=== PATIENT | female | born 1980 | race Caucasian/White ===

== ENCOUNTER 2023-03-04 06:00 | Emergency (ER) | payer OTHER ==
[~2023-03-04] VITALS: Ht 152.4 cm; Wt 72.6 kg
[2023-03-04 06:18] VITALS: BP_SYST 202; PULSE 88; RESP 24; TEMP 97.3; O2SAT 95
[2023-03-04] MEDS ORDERED: NACL 0.9% 1,000 ML IV ONE (06:45)
[2023-03-04] MEDS ORDERED: cloNIDine HCL 0.1 MG TABLET ONE (07:27)
[2023-03-04] MEDS ORDERED: cloNIDine HCL 0.1 MG TABLET PO ONE (07:30)
[2023-03-04] MEDS ORDERED: cloNIDine HCL 0.2 MG TABLET PO ONE (07:30)
[2023-03-04 07:32] LABS: BILIRUBIN,URINE NEGATIVE (NEGATIVE); BLOOD, URINE 2+ (NEGATIVE); CLARITY/URINE CLEAR (CLEAR); GLUCOSE,URINE NEGATIVE (NEGATIVE); KETONES,URINE NEGATIVE (NEGATIVE); LEUKOCYTE ESTERASE ,URINE NEGATIVE (NEGATIVE); NITRITE, URINE NEGATIVE (NEGATIVE); PROTEIN URINE 3+ (NEGATIVE); UROBILINOGEN,URINE 0.2 (0.2-1.0)
[2023-03-04 07:37] LABS: BASOPHILS # (AUTO) 0.1 K/uL (0.0-0.2); BASOPHILS % (AUTO) 1.4 % (0.0-2.0); EOSINOPHILS % (AUTO) 0.3 % (0.0-4.0); HEMATOCRIT 41.1 % (36-48); HEMOGLOBIN 13.6 g/dL (12.0-16.0); LYMPHOCYTES # (AUTO) 1.6 K/uL (1.0-5.5); LYMPHOCYTES % (AUTO) 39.1 % (20.5-51.5); MEAN CORPUSCULAR HEMOGLOBIN 32 pg (27-31); MEAN CORPUSCULAR HGB CONC 33 % (32-36); MEAN CORPUSCULAR VOLUME 95 fL (79.0-98.0); MONOCYTES # (AUTO) 0.4 K/uL (0.0-1.0); MONOCYTES % (AUTO) 10.2 % (1.7-9.3); PLATELET COUNT (AUTO) 385 K/uL (130-430); RED BLOOD CELL COUNT(AUTO) 4.34 MIL/uL (4.2-6.2); RED CELL DISTRIBUTION WIDTH 13.6 % (9.0-15.0); WHITE BLOOD COUNT (AUTO) 4.2 K/uL (4.8-10.8)
[2023-03-04 07:38] LABS: PROTHROMBIN TIME 10.5 SECS (9.5-12.5)
[2023-03-04 07:41] LABS: COLOR,URINE STRAW (YELLOW)
[2023-03-04 07:42] LABS: BARBITURATE, URINE NEGATIVE (NEG <=200); BENZODIAZEPINE, URINE POSITIVE (NEG <=150); CANNABINOID, URINE NEGATIVE (NEG <=50); COCAINE, URINE NEGATIVE (NEG <=150); METHAMPHETAMINES SCREEN,URINE NEGATIVE (NEG <=500); OPIATE, URINE NEGATIVE (NEG <=100); PHENCYCLIDINE SCREEN,URINE NEGATIVE (NEG <=25); UR TRICYCLIC ANTIDEPRESSANTS NEGATIVE (NEG <=300); URINE AMPHETAMINE NEGATIVE (NEG <=500); URINE METHADONE NEGATIVE (NEG <=200); URINE OXYCODONE SCREEN NEGATIVE (NEG <=100)
[2023-03-04 07:54] LABS: ANION GAP 10 (5-15); CARBON DIOXIDE 26 mmol/L (23-29); CHLORIDE 109 mmol/L (98-107); CREATININE 0.53 mg/dL (0.55-1.30); GFR AFRICAN AMERICAN 162 mL/min (>90); GLUCOSE 105 mg/dL (74-106); POTASSIUM 3.2 mmol/L (3.5-5.1); SODIUM SERUM 145 mmol/L (136-145); UREA NITROGEN, BLOOD 5 mg/dL (8-21)
[2023-03-04 07:56] LABS: GFR NON AFRICAN-AMERICAN 134 mL/min (>90)
[2023-03-04 08:07] LABS: BACTERIA,URINE RARE /HPF (None Seen); WBC,URINE 0-3 /HPF (0-3)
[2023-03-04 08:10] LABS: ACETAMINOPHEN 3 ug/mL (1-30); ALANINE AMINOTRANSFERASE 59 U/L (12-78); ALBUMIN 2.3 g/dL (3.4-4.8); ALCOHOL, BLOOD 284 mg/dL (<10); ASPARTATE AMINOTRANSFERASE 40 U/L (10-37); BILIRUBIN,DIRECT < 0.1 mg/dL (0.0-0.3); CREATINE KINASE, TOTAL 142 U/L (26-192); SALICYLATE 1 mg/dL (3-30); TOTAL BILIRUBIN 0.1 mg/dL (0.0-1.0); TOTAL PROTEIN, SERUM 5.5 g/dL (6.4-8.3)
[2023-03-04 08:14] LABS: ACETONE, SERUM NEGATIVE (NEGATIVE)
[2023-03-04 11:22] VITALS: BP_SYST 155; PULSE 81; RESP 15; TEMP 97.3; O2SAT 95
== END 2023-03-04 11:18 | disposition home or self-care (01) ==
LOC: SED 06:00
DX: F10.129 Alcohol abuse with intoxication, unspecified (principal); R41.82 Altered mental status, unspecified; Y90.8 Blood alcohol level of 240 mg/100 ml or more; Z79.899 Other long term (current) drug therapy
CPT/HCPCS: 99285; 70450; 96360; 71045; 80307; 80076; 80048; 81001; 82009; 82140; 82550; 83880; 85025; 85610; 85730; 87040; 84484; 36415; 93005; 70490; 76376; 81025; 83605; 82397; J7030; G0480; 81000; 81015; G0481; G0482